=== PATIENT | female | born 1995 | race Two or more races ===

== ENCOUNTER → 2016-10-02 | Outpatient (REF) | payer OTHER | LOC: M LAB REF 19:29 | PROVIDERS: ATTEND Physician Assistant | DX: R30.0 Dysuria (principal) ==

== ENCOUNTER → 2016-10-30 | Outpatient (REF) | payer OTHER | LOC: M LAB REF 17:40 | PROVIDERS: ATTEND Physician Assistant | DX: N76.0 Acute vaginitis (principal) ==